=== PATIENT | male | born 1970 | race Caucasian/White ===

== ENCOUNTER 2019-12-12 08:29 | Outpatient (CLI) | payer OTHER, SELFPAY ==
[2019-12-12 08:38] LABS: Add Urine Microscopic? NO; Appearance Urine Clear (Clear); Basophils Absolute Auto 0.09 K/mm3 (0.00-0.10); Bilirubin Urine Negative (Negative); Blood Urine Negative (Negative); Color Urine Yellow (Yellow); Eosinophils Percent Auto 2.1 % (1.0-6.0); Glucose Urine UA Negative (Negative); Hematocrit 44.4 % (40.0-54.0); Hemoglobin 14.9 g/dL (14.0-18.0); Immature Granulocyte Absolute 0.03 K/mm3 (0.00-0.00); Immature Granulocyte Percent A 0.3 % (0.0-0.0); Ketones Urine Negative (Negative); Leukocyte Esterase Ur Negative LEU/UL (Negative); Lymphocytes Absolute Auto 4.76 K/mm3 (1.10-4.50); Lymphocytes Percent Auto 50.9 % (18.0-42.0); Mean Corpuscular HGB Conc 33.6 g/dL (32.0-36.0); Mean Corpuscular Hemoglobin 30.5 pg (27.0-31.0); Mean Platelet Volume 10.3 fl (8.7-11.0); Monocytes Absolute Auto 0.54 K/mm3 (0.10-0.90); Monocytes Percent Auto 5.8 % (2.0-11.0); Neutrophils Absolute Auto 3.7 K/mm3 (1.7-7.2); Neutrophils Percent Auto 39.9 % (50.0-70.0); Nitrate Urine Negative (Negative); Platelet Count Result 193 K/mm3 (150-420); Protein Urine Negative (Negative); Red Blood Count 4.88 M/mm3 (4.70-6.10); Red Cell Distribution Width 12.7 % (11.6-14.4); Specific Grav Ur 1.025 (1.010-1.020); Urobilinogen Urine 0.2 mg/dL (0.2-1.0); White Blood Count 9.4 K/mm3 (4.8-10.8)
[2019-12-12 08:47] LABS: Hemoglobin A1C 8.1 % (<5.7)
[2019-12-12 10:02] LABS: Alanine Aminotransferase 37 U/L (16-63); Albumin Level 3.8 g/dL (3.4-5.0); Alkaline Phosphatase 97 U/L (46-116); Anion Gap 12 mmol/L (8-16); Aspartate Amino Transferase 15 U/L (15-37); Bilirubin,Total 0.5 mg/dL (0.00-1.00); Blood Urea Nitrogen 20 mg/dL (7-18); Calcium 8.8 mg/dL (8.5-10.1); Carbon Dioxide 23 mmol/L (21-32); Chloride 104 mmol/L (98-108); Cholesterol 268 mg/dL (0-200); Estimated Glomerular Filt Rate > 60; Glucose 178 mg/dL (70-99); HDL Direct 61 mg/dL (40-60); LDL Cholesterol Calculated 195 mg/dL (<130); Osmolality Calculated 294 mOsm/kg (285-295); Potassium 4.3 mmol/L (3.5-5.1); Sodium 139 mmol/L (136-145); Total Protein 6.6 g/dL (6.4-8.2); Triglycerides 59 mg/dL (0-150)
== END 2019-12-12 08:30 | disposition home or self-care (01) ==
LOC: CHSLAB 08:30
PROVIDERS: PCP Internal Medicine; Visit Provider Internal Medicine
DX: E78.5 Hyperlipidemia, unspecified (principal); E11.65 Type 2 diabetes mellitus with hyperglycemia
CPT/HCPCS: 36415; 80053; 80061; 81003; 83036; 85025

== ENCOUNTER 2021-11-23 08:48 | Outpatient (CLI) | payer OTHER, SELFPAY ==
--- NOTE | ~2021-11-23 | NM_ITS ---
EXAMINATION: NM marek stress w perfusion DATE: 11/23/2021 11:53 INDICATION: Chest pain. TECHNIQUE: Rest images were obtained following intravenous administration of 9.0 mCi Tc99m tetrofosmi n (Myoview). The patient was infused intravenously with Lexiscan (regadenoson). Then, 27.0 mCi Tc99m tetrofosmin (Myoview) was administered intravenously, and stress images were obtained. Data was recon structed into short axis and horizontal and vertical long axis SPECT images. Gated SPECT images were also obtained. COMPARISON: None. FINDINGS: There is a small, mild, fixed perfusion defect involving left ventricular apex, consistent with infarct. No reversible component to suggest ischemia. There is no segmental wall motion abnorma lity. Left ventricular ejection fraction measures >70%. IMPRESSION: 1. 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 2. Normal left ventricular ejection fraction measuring >70%. Reviewed, dictated and finalized at location A.
--- NOTE | 2021-11-23 09:10 | EST_ITS ---
Patient Info Name: Kvng Allen Age: 51 years : 1970 Gender: Male Ht: 73 in Wt: 155 lbs BSA: 1.89 m2 Exam Date: 11/23/2021 9:44 AM Exam Location: [facility] Stress Patient Status: Outpatient Admit Date: 11/23/2021 Staff Ordering Physician: Vinh Gaspar DO Attending Provider: Vinh Gaspar DO Exercise Technologist: Melissa Milner RDCS Exercise Physician: Vinh Gaspar DO Exam Type: CA stress marek w NM Study Info Indications Z01.818 - Encounter for other preprocedural examination R07.9 - Chest pain, unspecified A regadenoson stress test was performed. Summary 1. 1. Negative Lexiscan stress test for ischemic ST changes by ECG criteria. 2. 2. Baseline hypertension. 3. 3. Nuclear scan to follow and will be reported separately. Please correlate with it. 4. 4. Patient informed of the above results. Protocol: Lexiscan Stress ECG Details Stage: REST Duration (min): 0 min : 52 sec HR (bpm): 64 SBP (mmHg): 140 DBP (mmHg): 96 Stage: REST Duration (min): 14 min : 27 sec HR (bpm): 58 SBP (mmHg): 140 DBP (mmHg): 96 Stage: STAGE 1 Duration (min): 0 min : 59 sec HR (bpm): 79 SBP (mmHg): 137 DBP (mmHg): 86 Stage: RECOVERY Duration (min): 1 min : 0 sec HR (bpm): 86 SBP (mmHg): 146 DBP (mmHg): 84 Stage: RECOVERY Duration (min): 2 min : 0 sec HR (bpm): 78 SBP (mmHg): 146 DBP (mmHg): 84 Stage: RECOVERY Duration (min): 3 min : 0 sec HR (bpm): 77 SBP (mmHg): 144 DBP (mmHg): 82 Stage: RECOVERY Duration (min): 3 min : 5 sec HR (bpm): 74 SBP (mmHg): 144 DBP (mmHg): 82 Rest HR: 58 bpm Peak HR: 87 bpm Rest Sys BP: 140 mmHg Peak Sys BP: 146 mmHg Max Pred HR: 171 bpm % Max Pred HR: 51 % Target HR: 145 bpm Max RPP: 12,702 bpm*mmHg Termination Reason: Completed protocol Cardiac Symptoms: Shortness of breath Total Time: 1 min : 0 sec Rest Jimenez BP: 96 mmHg Peak Jimenez BP: 84 mmHg Total Dose: 0.4 mg Resting ECG Sinus bradycardia. Stress ECG No ST changes. Arrhythmias None. Report Signatures
== END 2021-11-23 08:49 | disposition home or self-care (01) ==
PROVIDERS: PCP Internal Medicine; Visit Provider Internal Medicine Cardiovascular Disease
DX: R07.9 Chest pain, unspecified (principal); Z01.818 Encounter for other preprocedural examination
CPT/HCPCS: 78452; 93017; A9502

== ENCOUNTER 2021-12-27 02:05 | Day surgery (SDC) | payer OTHER, SELFPAY ==
[2021-12-22 14:32] VITALS: BMI 20.4
--- NOTE | 2021-12-22 14:39 | PC.NURSE ---
Report to the Outpatient Waiting Room, entrance under the green pavilion located off [facility], at time 1030 on date 12/27/21. Planned Procedure Time: 1230. Time changes happen often and if your time is changed the preop area will call you the afternoon before. - You and your visitor will be asked to self-screen and do not enter if you have any COVID symptoms. - We encourage only one visitor and NO visitors under age 16 are allowed at this time. Your visitor will receive communication by the phone number that is given day of service. - The patient visitor is requested to social distance or may leave the building when not with patient due to restrictions. - A mask is OPTIONAL within the hospital. Patients may have clear liquids (water, carbonated beverages, clear teas, apple juice) until 3 hours prior to surgery with a maximum of 20 ounces. - No food from midnight until time of surgery Take the following medications with a SIP of water the morning of surgery: 1/2 AM INSULIN DOSE Medications to discontinue per physician: N/A Date to take last dose: N/A Please no make-up, nail nicaraguan, hairspray, perfume, deodorant, or body powder the day of surgery. No jewelry (including any body piercings) or valuables the day of surgery, leave them at home. Please take a shower or bath the night before, or the morning of, surgery with an antibacterial soap (HIBICLENS). Wear comfortable, loose fitting clothing. - Jewelry must be removed prior to entering the operating room. Rings and piercings that are not removed may be cut off. - The hospital will not accept responsibility for valuables. - Please leave all valuables, including medications, at home the day of surgery. If you are going home after surgery, a licensed dinkey driver must drive you home. - NO public transportation without another adult. - We recommend that an adult stay with you for 24 hours following discharge. - We also recommend that you do not drive, make important decision, drink alcoholic beverages, or take any drugs that were not prescribed by your health care provider for at least 24 hours after your discharge time. Follow any additional instructions given to you from your surgeon. If you or anyone in your household have experienced Covid symptoms in the past week, please notify your surgeon or the nurse liaison at the phone number below for possible testing. Telephone instructions given to PT - KELLY KINGSLEY and asked if any additional questions and then verbalized understanding. Patient advised to call surgeon office or pre surgery nurse liaison [phone] if any additional questions.
[2021-12-27] VITALS (10 sets, daily range): BP systolic 107–153; BP diastolic 62–86; PULSE 46–66; RESP 12–18; TEMP 36.6–36.8; O2SAT 100
--- NOTE | 2021-12-27 08:37 | PM.IMHP ---
H&P: HPI History of Present Illness Date/Time: 12/27/21 08:37 Chief Complaint: left inguinal hernia Narrative: Mr. De La Fuente presents today at the request of Dr. Lomeli for evaluation.? Patient reports first noticing a bulge in his left groin almost 6 years ago, which had been small and asymptomatic.? Over the past 6 months, he has noticed increase in size of the bulge and has developed persistent associated discomfort.? Still able to reduce the bulge.? Has recently had more episodes of constipation. He is currently under the care of Dr. Gaspar for bradycardia. Review of Systems Review of Systems: All systems reviewed & are unremarkable except as noted in HPI and below PMFSH Past Medical History Medical History Diabetes High cholesterol Hypertension Family History Family History Other Diabetes mellitus Heart disease Social History Social History Smoking packs per day: 1 Smoking cigarettes per day: 20.0 Years smoked: 20 Smoking pack-years: 20.00 Smoking status: Current every day smoker Tobacco type: cigarettes Alcohol intake: never Alcohol use details: Rarely Substance use: never Substance use type: does not use Living arrangements: with family Spiritual care concerns: No Meds Home Medications and Allergies Home Medications Medication Instructions Recorded Confirmed Type atorvastatin 20 mg tablet 20 mg PO DAILY 10/11/21 12/22/21 History insulin admin supplies (InPen (for 10/11/21 12/02/21 History Humalog) Blue subcutaneous) lisinopril 2.5 mg tablet 2.5 mg PO DAILY 10/11/21 12/22/21 History insulin glargine 100 unit/mL (3 35 unit subcut HS 12/22/21 12/22/21 History mL) subcutaneous pen (Lantus Solostar U-100 Insulin) insulin lispro 100 unit/mL 5 - 10 sliding scale dose subcut 12/22/21 12/22/21 History subcutaneous pen (Humalog KwikPen TID (U-100) Insulin) Allergies Allergy/AdvReac Type Severity Reaction Status Date / Time morphine AdvReac Other Verified 12/22/21 14:45 Exam Const: General: cooperative, comfortable and no acute distress Resp: Auscultation: clear to auscultation bilaterally Cardio: Rate: regular rate Rhythm: regular rhythm GI: Inspection: normal to inspection and non-distended GI Palp: Yes abdominal tenderness, Yes Soft to palpation, Yes Tenderness to palpation present (GI), No Guarding due to palpation present (GI), No Rigid due to palpation and Yes Hernia present Other: LIH - reducible Assessment and Plan Assessment and plan (1) Inguinal hernia without obstruction or gangrene: Code(s): K40.90 - Unilateral inguinal hernia, without obstruction or gangrene, not specified as recurrent Status: Acute Assessment and Plan: will setup for robotic assisted repair c mesh (2) Preop cardiovascular exam: Code(s): Z01.810 - Encounter for preprocedural cardiovascular examination Status: Acute Assessment and Plan: cardiac clearance obtained (3) Diabetes: Code(s): E11.9 - Type 2 diabetes mellitus without complications Status: Acute Assessment and Plan: stable, medically cleared (4) Tobacco abuse: Code(s): Z72.0 - Tobacco use Status: Acute Assessment and Plan: consueled cessation
--- NOTE | 2021-12-27 10:53 | WPDANESEPPF ---
Anes - Initial Pre Proc Eval Procedure: Operation Date: 12/27/21 12:30 Proposed Procedures p Robotic Assisted Left Inguinal Hernia Repair with Mesh - Rosemarie Kimball MD Date/Time: 12/27/21 10:53 Surgeon: Rosemarie Kimball MD Pre Op Diagnosis: left inguinal hernia Patient Data Age: 51 Gender: M Height: 1.85 m Weight: 70.31 kg Allergies Allergy/AdvReac Type Severity Reaction Status Date / Time morphine AdvReac Other Verified 12/22/21 14:45 Home Medications Medication Instructions Recorded Confirmed Type atorvastatin 20 mg tablet 20 mg PO DAILY 10/11/21 12/22/21 History insulin admin supplies (InPen (for 10/11/21 12/02/21 History Humalog) Blue subcutaneous) lisinopril 2.5 mg tablet 2.5 mg PO DAILY 10/11/21 12/22/21 History insulin glargine 100 unit/mL (3 35 unit subcut HS 12/22/21 12/22/21 History mL) subcutaneous pen (Lantus Solostar U-100 Insulin) insulin lispro 100 unit/mL 5 - 10 sliding scale dose subcut 12/22/21 12/22/21 History subcutaneous pen (Humalog KwikPen TID (U-100) Insulin) Patient hx anesthesia problems: post op nausea/vomiting Family hx anesthesia problems: none Results Review: All pre-operative results and documents have been reviewed as part of the pre-operative evaluation. [facility] Past Medical History Medical History Diabetes High cholesterol Hypertension Family History Family History Other Diabetes mellitus Heart disease Social History Social History Smoking packs per day: 1 Smoking cigarettes per day: 20.0 Years smoked: 20 Smoking pack-years: 20.00 Smoking status: Current every day smoker Tobacco type: cigarettes Alcohol intake: never Alcohol use details: Rarely Substance use: never Substance use type: does not use Living arrangements: with family Spiritual care concerns: No Anes - Eval Final PreProcedure Day of Procedure 12/27/21 10:53 Patient weight: normal Heart: regular rate and rhythm Lungs: decreased breath sounds Airway: Mallampati scale class II Neurological: alert and oriented Last oral intake: >/= 8 hours ASA classification: III Emergent: no Anesthetic plan: proceed Anesthesia type and monitoring: general ETT and standard monitoring Results Review: All pre-operative results and documents have been reviewed as part of the pre-operative evaluation. Informed Consent: The patient's anesthetic plan and its attendant risks and benefits were discussed with the patient/family/POA. Questions were solicited and answers provided to the satisfaction of the patient/family/POA.
[2021-12-27] MEDS: LACTATED RINGERS 1,000 ML 30 ML IV CONT ×3 (11:00→15:03)
[2021-12-27] MEDS: KETOROLAC 15 MG/ML VIAL (*BKC) IV PUSH (11:00)
[2021-12-27] MEDS: ACETAMINOPHEN 500 MG TABLET 1000 MG PO (11:00)
[2021-12-27] MEDS: SCOPOLAMINE 1.5 MG PATCH TRANSDERM (11:07)
[2021-12-27 11:15] LABS: Anion Gap 13 mmol/L (8-16); Blood Urea Nitrogen 15 mg/dL (9-20); Calcium 9.1 mg/dL (8.4-10.2); Carbon Dioxide 26 mmol/L (22-30); Chloride 100 mmol/L (98-107); Estimated CRCL calculation 119 ml/min; Estimated Glomerular Filt Rate > 60; Glucose 258 mg/dL (65-110); Sodium 139 mmol/L (137-145)
[2021-12-27] MEDS: INSULIN HUMAN REGULAR (*BKC) 100 UNITS/ML 6 UNITS SUB-Q (11:41)
--- NOTE | 2021-12-27 12:00 | WPDHPUPDATE1 ---
History and Physical Update Update Date/Time: 12/27/21 12:00 History and Physical has been reviewed, including an updated exam of the patient. There are NO changes in the patient's condition. Risks, benefits, and alternatives have been discussed and questions answered. Patient agrees to proceed with procedure.
[2021-12-27] MEDS: ceFAZolin 2 GM/D5W 50 ML 2 GM/50 ML BAG IVPB (12:48)
[2021-12-27] MEDS: BUPIVACAINE/EPINEPHRINE 0.25% 50 ML VIAL 30 ML INFILTRATE (13:24)
--- NOTE | 2021-12-27 14:14 | W.PM.PROC2 ---
Procedure Note - Detailed Date of Procedure 12/27/21 Pre-op Diagnosis left inguinal hernia Post-op Diagnosis Same Procedure Performed robotic assisted left inguinal hernia repair with mesh Surgeon Rosemarie Kimball MD Anesthesia General Indications 51 y/o M c LIH and worsening groin pain over last few months Findings indirect left inguinal hernia Description of Procedure Patient was brought into the operating room and placed in the supine position. After adequate induction of general anesthesia, the patient was prepped and draped in normal sterile fashion. A time-out was then done to verify the patient's identity, as well as the procedure being performed. I began by making a 8 mm incision in the supraumbilical region, a Veress needle was then placed into the peritoneal cavity. CO2 gas was then insufflated and after adequate pneumoperitoneum was achieved, the Veress needle was removed. I then placed an 8 mm trocar through this incision. I then placed the endoscope through this trocar site and under direct visualization placed 2 further 8 mm ports in the right and left mid abdomen. The [employer] robot was then docked to the 3 trocar sites. I then scrubbed out and went to the robotic console. Upon examining the pelvis, it was noted that the patient had a moderate left inguinal hernia. The right side was examined and no hernia defect was noted. I began by making a preperitoneal flap approximately 6 cm superior to the defect. This flap was carried medially past the umbilical ligaments and laterally to the transversalis. It then began dissection of my medial compartment taking this down to the pubic tubercle. I then began the lateral dissection taking this down to the transversalis fascia. Once these compartments were achieved, I began dissection around the cord structures. A moderate sized indirect hernia was noted at this point. Using careful dissection, was able to reduce indirect hernia sac off the cord structures. Once this was adequately done, I went ahead and placed a large piece of 3D Max mesh into the abdominal cavity. The mesh was carefully positioned, centering the center of the mesh over the indirect defect. Once this was done, was very satisfied with our repair. Using 3-0 Vicryl sutures, I tacked the mesh medially to Kirit's ligament. Two lateral sutures were placed from the mesh to the transversalis fascia. I then closed the peritoneal flap with a running 2.0 V Lock suture. The abdomen was then desufflated, and all ports were removed. All incisions were then closed with the 4.0 monocryl suture. Dermabond was placed on each wound. The patient tolerated the procedure well, was extubated in the operating room postoperatively, and will now be transferred to the recovery room in stable condition. Implants large 3DMax mesh Estimated Blood Loss 10 Drains No Packing No Pathology None sent Complications No immediate complications Condition Stable Disposition PACU [facility] Billing Surgery - Charge Forward: Surgery Billing
[2021-12-27 14:37] LABS: Glucose Point of Care 225 mg/dl (65-105)
--- NOTE | 2021-12-27 15:05 | SUR.PHASEI ---
1505-POC GLUCOSE DISCUSSED W/DR. ALEXANDER, NO TX AT THIS TIME.
== END 2021-12-27 16:50 | disposition home or self-care (01) ==
PROVIDERS: Anesthesiology; PCP Internal Medicine; Visit Provider Surgery
PROC: 8E0Y4CZ Robotic Assisted Procedure of Lower Extremity, Percutaneous Endoscopic Approach (ICD-10-PCS; CPT 49650; principal; 2021-12-27 12:30)
DX: K40.90 Unilateral inguinal hernia, without obstruction or gangrene, not specified as recurrent (principal); E11.9 Type 2 diabetes mellitus without complications; E78.00 Pure hypercholesterolemia, unspecified; I10 Essential (primary) hypertension; Z79.4 Long term (current) use of insulin; F17.210 Nicotine dependence, cigarettes, uncomplicated
CPT/HCPCS: 49650; S2900; 36415; 80048; 82948; 86850; 86900; 86901; A9270; C1781; J0690; J1100; J1170; J1815; J1885; J2250; J2405; J2704; J2710; J3010; J7030; J7120

== ENCOUNTER 2022-01-03 11:55 | Emergency (ER) | payer OTHER, SELFPAY ==
[2022-01-03 12:52] VITALS: BP 135/85; PULSE 51; RESP 24; TEMP 36.8; O2SAT 100
--- NOTE | 2022-01-03 15:02 | PC.NURSE ---
PT SEEN LEAVING ED W/ . SERVICE RIG OPERATOR ATTEMPTED TO DRAW BLOOD ON PT WHO BEGAN CUSSING ABOUT HOW SICK HE WAS AND HOW HE NEEDED TO GET OUT OF THIS PLACE.
== END 2022-01-03 15:02 | disposition left against medical advice (07) ==
LOC: ANHED 15:19
PROVIDERS: PCP Internal Medicine
DX: K59.00 Constipation, unspecified (principal)
CPT/HCPCS: 99199

== ENCOUNTER 2022-01-03 15:30 | Emergency (ER) | payer OTHER, SELFPAY ==
--- NOTE | ~2022-01-03 | CT_ITS ---
EXAMINATION: CT abdomen pelvis w con DATE: 01/03/2022 17:44 INDICATION: post op abdominal pain TECHNIQUE: Computed tomography (CT) of the abdomen and pelvis was performed with 100 mL Omnipaque-350 intravenous contrast. Automated exposure control and iterative reconstruction technique were employe d. The dose-length product was 244.66 mGy-cm. COMPARISON: None. FINDINGS: Lower thorax: Unremarkable Liver: Simple right lobe cyst near the tip of the liver. Multiple additional hypodensities that are t oo small to characterize but also likely represent cysts. Biliary/Gallbladder: Gallbladder is normal. No bile duct dilation. Pancreas: No mass or duct dilation. Spleen: Normal. Adrenals:No mass. Kidneys: Simple right midpole cyst. No suspicious mass. No hydronephrosis or obstructing calcificatio n. Insert before no small mild distal esophageal and gastric wall edema as can be seen with esophagit is/gastritis. GI tract: No small or large bowel dilation. Appendix not visualized Mesentery/Peritoneum: No ascites, mass, or free air. Retroperitoneum: No mass. Atherosclerotic abdominal aortic and/or arterial calcifications. Pelvis: The bladder is distended with intermediate density fluid. Prostatomegaly. Soft Tissues: Subcutaneous gas and soft tissue irregularity, stranding in the left inguinal canal. Mi nimal subcutaneous gas in the right inguinal canal Bones: No acute osseous finding. IMPRESSION: Bilateral inguinal postsurgical change with comparatively increased gas and inflammatory stranding in the left inguinal canal. Distended urinary bladder, with nonsimple fluid content that may represent hemorrhage, crystalline, or proteinaceous debris. Reviewed, dictated and finalized at location K. TRANSIT OPERATOR IMPRESSION: Bilateral inguinal postsurgical change with comparatively increased gas and inf lammatory stranding in the left inguinal canal. Distended urinary bladder, with nonsimple fluid content that may represent hemorrhage, crystalline, or protein aceous debris.
--- NOTE | 2022-01-03 15:40 | ED.ABDPAIN ---
HPI - Abdominal Pain General Chief Complaint: Abdominal Pain Stated Complaint: severe abdominal pain Time Seen by Provider: 01/03/22 15:37 Source: patient Mode of arrival: ambulatory History of Present Illness HPI narrative: 51-year-old male with a history of hypertension, dyslipidemia, diabetes mellitus had left inguinal hernia repair robotically on 12/27/2021. Postprocedure he had transient abdominal pain which resolved. Subsequently he developed left flank abdominal pain. He is constipated but had a small bowel movement today. He presents to the ER with -- abdominal pain -- decreased oral intake -- nausea without any vomiting or diarrhea. -- No fever but diaphoretic. -- Patient quit taking his 40 units of Lantus and sliding scale. He presents with a blood sugar of 266. MD elicited complaint: abdominal pain Onset (ago): day(s) ( Worsening abdominal pain for the past 3 days.) Pain Consistency: intermittent Location: L flank Severity: severe Quality: cramping and sharp Migration to: no migration Exacerbating factors: movement Relieving factors: nothing Associated symptoms: nausea Related Data Home Medications Medication Instructions Recorded Confirmed atorvastatin 20 mg tablet 20 mg PO DAILY 10/11/21 01/03/22 insulin admin supplies (InPen (for 10/11/21 01/03/22 Humalog) Blue subcutaneous) lisinopril 2.5 mg tablet 2.5 mg PO DAILY 10/11/21 01/03/22 insulin glargine 100 unit/mL (3 35 unit subcut HS 12/22/21 01/03/22 mL) subcutaneous pen (Lantus Solostar U-100 Insulin) insulin lispro 100 unit/mL 5 - 10 sliding scale dose subcut 12/22/21 01/03/22 subcutaneous pen (Humalog KwikPen TID (U-100) Insulin) Allergies Allergy/AdvReac Type Severity Reaction Status Date / Time morphine AdvReac Other Verified 01/03/22 15:46 Review of Systems Review of Systems: All systems reviewed & are unremarkable except as noted in HPI and below Constitutional: Constitutional: Reports as per HPI, Reports no additional constitutional complaints and Reports weakness Eyes: Eyes: Reports as per HPI and Reports no additional eye complaints ENT: Reports system reviewed and no additional complaints, except as documented and Reports as per HPI Cardiovascular: Cardiovascular: Reports as per HPI and Reports no additional cardiovascular complaints Respiratory: Respiratory: Reports as per HPI and Reports no additional respiratory complaints Gastrointestinal: Gastrointestinal: Reports as per HPI, Reports no additional gastrointestinal complaints, Reports abdominal pain and Reports nausea Genitourinary: Genitourinary: Reports no additional male genitourinary complaints and Reports as per HPI Musculoskeletal: Musculoskeletal: Reports no additional musculoskeletal complaints and Reports as per HPI Integumentary/Breasts: Skin/Breast: Reports system reviewed and no additional complaints, except as docu and Reports as per HPI Neurologic: Reports system reviewed and no additional complaints, except as documented and Reports as per HPI Psychiatric: Psychiatric: Reports no additional psychiatric complaints and Reports as per HPI Endocrine: Endocrine: Reports no additional endocrine complaints and Reports as per HPI Hematologic/Lymphatic: Hematologic/Lymphatic: Reports no additional hematologic/lymphatic complaints and Reports as per HPI Allergic/Immunologic: Allergic/Immunologic: Reports no additional allergic/immunologic complaints and Reports as per HPI PMFSH Past Medical History Medical History Diabetes High cholesterol Hypertension Family History Family History Other Diabetes mellitus Heart disease Social History Social History Smoking packs per day: 1 Smoking cigarettes per day: 20.0 Years smoked: 20 Smoking pack-years: 20.00 Smoking status: Cu
[2022-01-03 15:43] VITALS: BP 136/80; PULSE 63; RESP 16; TEMP 36.6; O2SAT 100
[2022-01-03 15:44] LABS: Glucose Point of Care 267 mg/dl (65-105)
[2022-01-03] MEDS: ONDANSETRON INJ 4 MG/2 ML VIAL IV PUSH ×2 (16:21→19:54)
[2022-01-03] MEDS: LACTATED RINGERS 1,000 ML 999 ML IV CONT ×2 (16:22→17:18)
[2022-01-03] MEDS: fentaNYL CITRATE INJ (*CRX) 100 MCG/2 ML VIAL 50 MCG IV PUSH ×2 (16:26→19:52)
[2022-01-03 16:36] LABS: Basophils Absolute Auto 0.07 K/mm3 (0.00-0.10); Basophils Percent Auto 0.8 % (0.0-1.0); Eosinophils Absolute Auto 0.04 K/mm3 (0.02-0.50); Eosinophils Percent Auto 0.5 % (1.0-6.0); Hemoglobin 15.3 g/dL (14.0-18.0); Immature Granulocyte Absolute 0.05 K/mm3 (0.00-0.00); Immature Granulocyte Percent A 0.6 % (0.0-0.0); Lymphocytes Absolute Auto 2.85 K/mm3 (1.10-4.50); Lymphocytes Percent Auto 33.1 % (18.0-42.0); Mean Corpuscular HGB Conc 34.8 g/dL (32.0-36.0); Mean Corpuscular Hemoglobin 30.7 pg (27.0-31.0); Mean Corpuscular Volume 88.4 fL (78.0-102.0); Mean Platelet Volume 9.9 fl (8.7-11.0); Monocytes Absolute Auto 0.39 K/mm3 (0.10-0.90); Monocytes Percent Auto 4.5 % (2.0-11.0); Neutrophils Absolute Auto 5.2 K/mm3 (1.7-7.2); Neutrophils Percent Auto 60.5 % (50.0-70.0); Platelet Count Result 240 K/mm3 (150-420); Red Blood Count 4.98 M/mm3 (4.70-6.10); Red Cell Distribution Width 12.4 % (11.6-14.4); White Blood Count 8.6 K/mm3 (4.8-10.8)
[2022-01-03 16:50] LABS: Lipase 58 U/L (73-393); Magnesium 1.7 mg/dL (1.8-2.4)
[2022-01-03 16:52] LABS: Partial Thromboplastin Time 29.9 SEC (23.90-30.70); Prothrombin Time 10.9 Seconds (9.50-12.10)
[2022-01-03 16:52] LABS: Alanine Aminotransferase 26 U/L (16-63); Albumin Level 3.9 g/dL (3.4-5.0); Alkaline Phosphatase 93 U/L (46-116); Anion Gap 9 mmol/L (8-16); Aspartate Amino Transferase 12 U/L (15-37); Bilirubin,Total 0.6 mg/dL (0.00-1.00); Blood Urea Nitrogen 23 mg/dL (7-18); Calcium 9.7 mg/dL (8.5-10.1); Carbon Dioxide 24 mmol/L (21-32); Chloride 98 mmol/L (98-108); Estimated Glomerular Filt Rate > 60; Glucose 305 mg/dL (70-99); Osmolality Calculated 286 mOsm/kg (285-295); Potassium 4.2 mmol/L (3.5-5.1); Sodium 131 mmol/L (136-145)
[2022-01-03 16:57] LABS: Lactic Acid Reflex 2.5 mmol/L (0.4-2.0)
[2022-01-03] MEDS: MAGNESIUM SULF 2 GM/WATER 50ML 2 GM/50 ML BAG IVPB (17:19)
[2022-01-03] MEDS: INSULIN HUMAN REGULAR (*BKC) 100 UNITS/ML 10 UNITS SUB-Q (17:52)
[2022-01-03 17:53] LABS: Glucose Point of Care 259 mg/dl (65-105)
--- NOTE | 2022-01-03 17:53 | PC.NURSE ---
patient taken to ct prior to giving insulin. administration time changed. glucose checked prior to giving. 259 at this time. erp notified to verify 10 unites subq to still be given. erp verifies to give 10 units at this time.
--- NOTE | 2022-01-03 18:53 | PC.NURSE ---
exchange called to abdiel palacios dr covering for patient's surgeon to discus findings of ct scan
[2022-01-03 19:00] VITALS: BP 126/78; PULSE 62; RESP 20; O2SAT 98
--- NOTE | 2022-01-03 19:15 | PC.NURSE ---
Care resumed, pt sitting bedside and Urine obtained for UA. Pt states he is feeling so much better, VSS. Pt given ice water at this time.
[2022-01-03 19:16] LABS: Add Urine Microscopic? YES; Appearance Urine Clear (Clear); Bilirubin Urine Negative (Negative); Blood Urine Negative (Negative); Color Urine Yellow (Yellow); Glucose Urine UA 3+ (Negative); Ketones Urine 3+ (Negative); Leukocyte Esterase Ur Negative (Negative); Nitrate Urine Negative (Negative); Protein Urine Negative (Negative); Urobilinogen Urine 0.2 mg/dL (0.2-1.0)
[2022-01-03 19:26] LABS: Bacteria Urine None seen /hpf; Mucus Urine Rare /lpf; RBC Urine 0-2 /hpf (0-2); Squamous Epithelial Cell Urine None seen /hpf (Few); WBC Urine 0-3 /hpf (0-3)
[2022-01-03 19:34] LABS: Reflex Lactic Acid Yes or No Add Lactic
[2022-01-03 20:01] LABS: Lactic Acid 1.7 mmol/L (0.4-2.0)
[2022-01-03 20:25] VITALS: BP 122/68; PULSE 56; RESP 20; TEMP 36.4; O2SAT 97
--- NOTE | 2022-01-10 14:15 | PC.NURSE ---
BLOOD CULTURES X2 FINAL RESULTS: NO GROWTH AFTER 5 DAYS. NO ACTION NEEDED
== END 2022-01-03 20:30 | disposition home or self-care (01) ==
PROVIDERS: Emergency Provider Internal Medicine Critical Care Medicine; PCP Internal Medicine
DX: R10.9 Unspecified abdominal pain (principal); Z98.890 Other specified postprocedural states; R33.9 Retention of urine, unspecified; E11.65 Type 2 diabetes mellitus with hyperglycemia; Z79.4 Long term (current) use of insulin; F17.200 Nicotine dependence, unspecified, uncomplicated
CPT/HCPCS: 36415; 74177; 80053; 81001; 82948; 83605; 83690; 83735; 85025; 85610; 85730; 87040; 96361; 96365; 96375; 96376; 99284; J1815; J2405; J3010; J3475; J7120; Q9967

== ENCOUNTER 2022-01-10 10:17 | Emergency (ER) | payer OTHER, SELFPAY ==
--- NOTE | ~2022-01-10 | CT_ITS ---
EXAMINATION: CT abdomen pelvis w con DATE: 01/10/2022 12:17 INDICATION: Abdominal pain TECHNIQUE: Computed tomography (CT) of the abdomen and pelvis was performed with 100 CC Omnipaque 350 intravenous contrast. Automated exposure control and iterative reconstruction technique were employe d. Exam dose: 213.79 mGy-cm total exam DLP. COMPARISON: 01/03/2022 CT abdomen pelvis FINDINGS: Mild emphysematous changes of the lungs. The lung bases are clear of infiltrate or consolid ation. Normal heart size. No pericardial or pleural effusion. There are scattered hypoattenuating lesions of the liver measuring up to approximately 12.7 mm, likel y hepatic cysts. The gallbladder is present. No bile duct or pancreatic duct dilatation. No pancreati c mass lesion or calcification is detected. Normal splenic size. Normal morphology of the adrenal glands. Approximately 12 mm upper pole right renal cyst and probable 4 mm mid right renal cyst. The kidneys a re otherwise unremarkable. No urinary tract calculus or hydroureteronephrosis is evident. Prostate enlargement and calcifications. The urinary bladder is unremarkable. Normal caliber of the abdominal aorta. No intraperitoneal or retroperitoneal or pelvic mass lesion or adenopathy or ascites. There is moderately prominent hematoma colon. No bowel obstruction or intraperitoneal free air is det ected. Diminished air in the left inguinal soft tissues and resolution of right inguinal area since 2. Moderate degenerative disc disease and mild retrolisthesis at L3-4. Severe degenerative disc disease at L5-S1. No suspicious osteolytic or osteoblastic lesions. IMPRESSION: Diminished air in the left inguinal region and resolution of right inguinal air since Emphysema Scattered hepatic probable cysts Right renal cysts Prostate enlargement and calcification Reviewed, dictated and finalized at [facility]. Reviewed, dictated and finalized at [facility]. 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
[2022-01-10 10:25] VITALS: BP 121/78; PULSE 50; RESP 16; TEMP 36.1; O2SAT 99
[2022-01-10 10:30] VITALS: BP 121/78; PULSE 50; RESP 16; TEMP 36.1; O2SAT 99
--- NOTE | 2022-01-10 10:47 | ECG_ITS ---
Measurements Intervals [place] Rate: 58 P: 75 WI: 172 QRS: 97 QRSD: 90 T: 77 QT: 420 QTc: 415 Interpretive Statements SINUS BRADYCARDIA RIGHT AXIS DEVIATION RIGHT ATRIAL ENLARGEMENT DELAYED PRECORDIAL R/S TRANSITION BASELINE ARTIFACT- I, II, III, AVR, AVL, AVF, V1 BORDERLINE ECG NO PREVIOUS ECG AVAILABLE FOR COMPARISON Electronically Signed On 01-10-2022 11:44:34 PLASTIC FABRICATOR by Vinh Gaspar D.O.
[2022-01-10 11:15] LABS: Basophils Absolute Auto 0.11 K/mm3 (0.00-0.10); Basophils Percent Auto 1.7 % (0.0-1.0); Eosinophils Absolute Auto 0.08 K/mm3 (0.02-0.50); Eosinophils Percent Auto 1.2 % (1.0-6.0); Hematocrit 43.7 % (40.0-54.0); Hemoglobin 14.9 g/dL (14.0-18.0); Immature Granulocyte Absolute 0.04 K/mm3 (0.00-0.00); Immature Granulocyte Percent A 0.6 % (0.0-0.0); Lymphocytes Absolute Auto 2.87 K/mm3 (1.10-4.50); Lymphocytes Percent Auto 43.2 % (18.0-42.0); Mean Corpuscular HGB Conc 34.1 g/dL (32.0-36.0); Mean Corpuscular Hemoglobin 30.8 pg (27.0-31.0); Mean Corpuscular Volume 90.3 fL (78.0-102.0); Mean Platelet Volume 9.8 fl (8.7-11.0); Monocytes Absolute Auto 0.43 K/mm3 (0.10-0.90); Monocytes Percent Auto 6.5 % (2.0-11.0); Neutrophils Absolute Auto 3.1 K/mm3 (1.7-7.2); Neutrophils Percent Auto 46.8 % (50.0-70.0); Platelet Count Result 257 K/mm3 (150-420); Red Blood Count 4.84 M/mm3 (4.70-6.10); Red Cell Distribution Width 12.3 % (11.6-14.4); White Blood Count 6.6 K/mm3 (4.8-10.8)
[2022-01-10] MEDS: SODIUM CHLORIDE 0.9% IV 1,000 ML 999 ML IV CONT ×2 (11:30→12:26)
[2022-01-10 11:31] LABS: Estimated CRCL calculation 81 ml/min; Estimated Glomerular Filt Rate > 60
[2022-01-10] MEDS: ONDANSETRON INJ 4 MG/2 ML VIAL IV PUSH (11:32)
[2022-01-10 11:33] LABS: Partial Thromboplastin Time 30.4 SEC (23.90-30.70); Prothrombin Time 10.7 Seconds (9.50-12.10)
[2022-01-10 11:40] LABS: Influenza A QL RT-PCR Negative (Negative); Influenza B QL RT-PCR Negative (Negative); SARS-CoV-2 RNA PCR Negative (Negative)
[2022-01-10 11:43] LABS: Alkaline Phosphatase 84 U/L (46-116); Aspartate Amino Transferase 11 U/L (15-37); Bilirubin,Total 0.7 mg/dL (0.00-1.00); Carbon Dioxide 22 mmol/L (21-32); Chloride 98 mmol/L (98-108); Potassium 4.3 mmol/L (3.5-5.1); Total Protein 7.5 g/dL (6.4-8.2); Troponin I 5.8 ng/L (0.00-60.4)
[2022-01-10 11:45] LABS: Blood Urea Nitrogen 20 mg/dL (7-18); Glucose 358 mg/dL (70-99)
[2022-01-10 11:46] LABS: Anion Gap 14 mmol/L (8-16); Calcium 9.1 mg/dL (8.5-10.1); Lactic Acid Reflex 1.5 mmol/L (0.4-2.0); Osmolality Calculated 294 mOsm/kg (285-295); Sodium 134 mmol/L (136-145)
[2022-01-10 11:47] LABS: Alanine Aminotransferase 24 U/L (16-63); Albumin Level 3.8 g/dL (3.4-5.0); CRP < 0.5 mg/dL (0.0-0.9); Lipase 71 U/L (73-393)
[2022-01-10 12:30] VITALS: BP 138/84; PULSE 57; RESP 16; TEMP 36.2; O2SAT 99
--- NOTE | 2022-01-10 12:43 | ED.DIZZY ---
HPI - Dizziness General Chief Complaint: Dizziness Stated Complaint: DIZZY HEADACHE VOMITING Time Seen by Provider: 01/10/22 10:31 Source: patient and family Mode of arrival: ambulatory Limitations: no limitations History of Present Illness HPI Narrative: this is a 51-year-old gentleman that presents with dizziness and sense of vertigo with movement has been nauseated, with some queasiness and no fever chills no shortness of breath has a frontal sinus headache and pressure, with some recent abdominal surgery laparoscopic inguinal hernia repair. Otherwise no abdominal pain no diarrhea constipation no chest pain no shortness of breath. MD elicited complaint: dizziness and vertigo Onset (ago): day(s) Timing: gradual onset Severity: moderate Description: sense of movement Context: change in body position Related Data Home Medications Medication Instructions Recorded Confirmed atorvastatin 20 mg tablet 20 mg PO DAILY 10/11/21 01/10/22 insulin admin supplies (InPen (for 10/11/21 01/03/22 Humalog) Blue subcutaneous) insulin glargine 100 unit/mL (3 35 unit subcut HS 12/22/21 01/10/22 mL) subcutaneous pen (Lantus Solostar U-100 Insulin) insulin lispro 100 unit/mL 5 - 10 sliding scale dose subcut 12/22/21 01/10/22 subcutaneous pen (Humalog KwikPen TID (U-100) Insulin) Allergies Allergy/AdvReac Type Severity Reaction Status Date / Time morphine AdvReac Other Verified 01/10/22 11:11 Review of Systems Review of Systems: All systems reviewed & are unremarkable except as noted in HPI and below PMFSH Past Medical History Medical History Diabetes High cholesterol Hypertension Family History Family History Other Diabetes mellitus Heart disease Social History Social History Smoking packs per day: 1 Smoking cigarettes per day: 20.0 Years smoked: 20 Smoking pack-years: 20.00 Smoking status: Current every day smoker Tobacco type: cigarettes Alcohol intake: never Alcohol use details: Rarely Substance use: never Substance use type: does not use Spiritual care concerns: No Exam Const: General: healthy appearing Nutritional Appearance: well nourished Orientation/consciousness: patient oriented x3 Limitations: no limitations HENMT: Head: normal to inspection Ears: TM's normal bilaterally Face/Nose/Sinus: Normal external nose present Face and sinus: sinus tenderness Mouth: Yes Normal oral and palatal mucosa present Eyes: Conjunctivae: conjunctivae normal Pupils: Equal, round and reactive pupils present EOM: EOMs intact bilaterally Neck: Neck: normal visual inspection, no lymphadenopathy and no meningeal signs Chest: Chest palpation & inspection: normal inspection of the chest Resp: Effort & Inspection: normal respiratory effort Auscultation: clear to auscultation bilaterally Cardio: Rate: regular rate Rhythm: regular rhythm GI: Auscultation: normal bowel sounds : General: Yes bladder normal to palpation Back/Spine/Pelvis: Back: no CVA tenderness Skin: General skin exam: normal color Rashes: no rashes Wounds: no wounds Neuro: General: patient oriented x3 Cranial nerves: Yes Nystagmus not present Speech: normal speech Psych: Mental Status: mental status grossly normal Course Course Emergency Course: CT scan reviewed with patient and family which shows no acute findings blood work was unremarkable his vitals are stable patient received IV fluids and a dose of Zofran. Vital Signs Vital signs: Vital Signs Temperature 36.1 C L 01/10/22 10:25 Pulse Rate 50 L 01/10/22 10:25 Respiratory Rate 16 01/10/22 10:25 Blood Pressure 121/78 01/10/22 10:25 Pulse Oximetry 99 01/10/22 10:25 Oxygen Delivery Room Air 01/10/22 10:25 Temperature 36.1 C L 01/10/22 10:30 Pulse Rate
== END 2022-01-10 13:07 | disposition home or self-care (01) ==
PROVIDERS: Emergency Provider Emergency Medicine; PCP Internal Medicine
DX: J01.10 Acute frontal sinusitis, unspecified (principal); Z20.822 Contact with and (suspected) exposure to COVID-19
CPT/HCPCS: 74177; 80053; 83605; 83690; 84484; 85025; 85610; 85730; 86140; 87040; 87502; 93005; 96361; 96374; 99284; J2405; J7030; Q9967; U0003; U0005

== ENCOUNTER 2022-02-06 03:58 | Observation (INO) | payer OTHER, SELFPAY ==
[2022-02-06] VITALS (45 sets, daily range): BP systolic 98–143; BP diastolic 60–104; PULSE 54–183; RESP 11–28; TEMP 36.3–36.8; O2SAT 97–100; BMI 18.7
--- NOTE | ~2022-02-06 | CT_ITS ---
EXAMINATION: CTA chest PE protocol DATE: 02/06/2022 06:32 INDICATION: Chest pain. TECHNIQUE: Computed tomography angiography (CTA) of the chest was performed with 100 mL Omnipaque-350 intravenous contrast timed to evaluate the pulmonary arteries. Coronal maximum intensity projection 3D-reconstructions were created by the technologist. Automated exposure control and iterative reconst ruction technique were employed. The dose-length product was 203.18 mGy-cm. COMPARISON: CT abdomen and pelvis 02/06/2022 FINDINGS: There is mild scarring at the lung apices. There is mild emphysema. There is mild atelectas is bilaterally. Calcified bilateral lung nodules are consistent with old granulomatous disease. No pl eural effusion. The heart size is normal. No pericardial effusion. There is mild thoracic spondylosis . Thoracic dextroscoliosis is noted. IMPRESSION: 1. No pulmonary embolus. Sensitivity is moderately decreased by motion artifact. 2. Mild emphysema. Reviewed, dictated and finalized at [facility]. ILITY SPECIALIST IMPRESSION: 1. No pulmonary embolus. Sensitivity is moderately decreased by motion artifact . 2. Mild emphysema.
--- NOTE | ~2022-02-06 | CT_ITS ---
EXAMINATION: CT abdomen pelvis w con DATE: 02/06/2022 05:27 INDICATION: Abdominal pain. TECHNIQUE: Computed tomography (CT) of the abdomen and pelvis was performed with 100 mL Omnipaque 350 intravenous contrast. Automated exposure control and iterative reconstruction technique were employe d. The dose-length product was 220.12 mGy-cm. COMPARISON: CT abdomen and pelvis 01/10/2022 FINDINGS: The visualized portions of the lung bases demonstrate mild emphysema and minimal atelectasi s. There are small bilateral posterior diaphragmatic hernias containing fat. No pleural effusion. The heart size is normal. No pericardial effusion. There are cysts in the liver measuring up to 1.5 cm. The gallbladder, spleen, pancreas, and adrenal glands are normal. There are cysts in right kidney el suring up to 13 mm. Left kidney is normal. The bladder is distended. The prostate is mildly enlarged. The appendix measures 10 mm in diameter and contains hyperdense material. There are no pathologicall y enlarged lymph nodes. There is no free intraperitoneal fluid. There is total occlusion of right ext ernal iliac artery and right common femoral artery. There is reconstitution of flow in right superfic ial femoral artery. There is total occlusion of left common femoral artery with reconstitution of karen w in superficial femoral artery, which demonstrates moderate stenosis. There is severe lower lumbar s pondylosis. IMPRESSION: 1. Appendiceal diameter of 10 mm with hyperdense material in the appendix, stable from 01/03/2022. No periappendiceal inflammation to suggest appendicitis. 2. Peripheral arterial disease, stable from 01/03/2022. Reviewed, dictated and finalized at [facility]. RESIDENT IMPRESSION: 1. Appendiceal diameter of 10 mm with hyperdense material in the appendix, stab le from 01/03/2022. No periappendiceal inflammation to suggest appendicitis. 2. Peripheral arterial disease, stable from 01/03/2022.
--- NOTE | 2022-02-06 04:01 | ECG_ITS ---
Measurements Intervals [place] Rate: 60 P: 83 [place]: 177 QRS: 105 QRSD: 89 T: 79 QT: 412 QTc: 413 Interpretive Statements SINUS RHYTHM RIGHT ATRIAL ENLARGEMENT [0.3mV P-WAVE] LEFT ATRIAL ENLARGEMENT [-0.15mV P-WAVE IN V1/V2] RIGHT AXIS DEVIATION [QRS AXIS > 100] NONSPECIFIC T-WAVE ABNORMALITY COMPARED TO ECG 01/10/2022 11:02:11, NONSPECIFIC T-WAVE FLATTENING IS NOTED Electronically Signed On 02-06-2022 8:50:08 DOOR MAKER by Guero Patel M.D.
[2022-02-06 04:04] LABS: Glucose Point of Care 368 mg/dl (65-105)
[2022-02-06] MEDS: METOCLOPRAMIDE HCL INJ 10 MG/2 ML VIAL IV PUSH (04:17)
[2022-02-06] MEDS: KETOROLAC 30 MG/ML VIAL (*BKC) IV PUSH (04:18)
[2022-02-06] MEDS: SODIUM CHLORIDE 0.9% IV 1,000 ML 999 ML IV CONT (04:18)
[2022-02-06] MEDS: PANTOPRAZOLE SODIUM IV 40 MG VIAL IV PUSH (04:18)
[2022-02-06] MEDS: SODIUM CHLORIDE 0.9% IV 2,000 ML 999 ML IV CONT (04:19)
[2022-02-06 04:42] LABS: Basophils Absolute Auto 0.07 K/mm3 (0.00-0.10); Basophils Percent Auto 0.6 % (0.0-1.0); Eosinophils Absolute Auto 0.01 K/mm3 (0.02-0.50); Eosinophils Percent Auto 0.1 % (1.0-6.0); Hematocrit 48.7 % (40.0-54.0); Hemoglobin 16.6 g/dL (14.0-18.0); Immature Granulocyte Absolute 0.15 K/mm3 (0.00-0.00); Immature Granulocyte Percent A 1.3 % (0.0-0.0); Lymphocytes Absolute Auto 2.29 K/mm3 (1.10-4.50); Lymphocytes Percent Auto 19.2 % (18.0-42.0); Mean Corpuscular HGB Conc 34.1 g/dL (32.0-36.0); Mean Platelet Volume 10.8 fl (8.7-11.0); Monocytes Absolute Auto 0.43 K/mm3 (0.10-0.90); Monocytes Percent Auto 3.6 % (2.0-11.0); Neutrophils Percent Auto 75.2 % (50.0-70.0); Platelet Count Result 233 K/mm3 (150-420); Red Blood Count 5.35 M/mm3 (4.70-6.10); Red Cell Distribution Width 12.5 % (11.6-14.4); White Blood Count 11.9 K/mm3 (4.8-10.8)
[2022-02-06 04:56] LABS: Alanine Aminotransferase 25 U/L (16-63); Albumin Level 4.2 g/dL (3.4-5.0); Alkaline Phosphatase 90 U/L (46-116); Anion Gap 23 mmol/L (8-16); Aspartate Amino Transferase 15 U/L (15-37); Bilirubin,Total 0.7 mg/dL (0.00-1.00); Blood Urea Nitrogen 20 mg/dL (7-18); Calcium 9.4 mg/dL (8.5-10.1); Carbon Dioxide 16 mmol/L (21-32); Chloride 96 mmol/L (98-108); Estimated Glomerular Filt Rate > 60; Glucose 379 mg/dL (70-99); Lipase 30 U/L (73-393); Magnesium 1.6 mg/dL (1.8-2.4); Osmolality Calculated 298 mOsm/kg (285-295); Partial Thromboplastin Time 26.2 SEC (23.90-30.70); Phosphorus 4.5 mg/dL (2.6-4.7); Potassium 5.1 mmol/L (3.5-5.1); Prothrombin Time 10.8 Seconds (9.50-12.10); Sodium 135 mmol/L (136-145); Total Protein 7.8 g/dL (6.4-8.2)
[2022-02-06 05:02] LABS: Lactic Acid Reflex 3.6 mmol/L (0.4-2.0)
[2022-02-06 05:18] LABS: Influenza A QL RT-PCR Negative (Negative); Influenza B QL RT-PCR Negative (Negative); SARS-CoV-2 RNA PCR Negative (Negative)
--- NOTE | 2022-02-06 05:46 | ECG_ITS ---
Measurements Intervals [place] Rate: 84 P: 84 DE: 181 QRS: 105 QRSD: 88 T: 82 QT: 369 QTc: 438 Interpretive Statements SINUS RHYTHM RIGHT ATRIAL ENLARGEMENT [0.3mV P-WAVE] NONSPECIFIC T-WAVE ABNORMALITY WITH MINOR ST SEGMENT CHANGES COMPARED TO ECG 02/06/2022 05:46:22 RAPID SVT HAS BEEN TERMINATED AND REPLACED BY SINUS RHYTHM Electronically Signed On 02-06-2022 8:51:40 CHIEF CONSTRUCTION INSPECTOR by Guero Patel M.D.
--- NOTE | 2022-02-06 05:52 | PC.NURSE ---
Pt arrived back from CT when he was hooked up to the Monitor his heart rate was in the 150s with very frequent PVC's. When this RN spoke with the pt he reported CP. MD and Cardiopulmonary were notified. before they arrived the heart rate progressed to the 170s. EKG read SVT. 6mg of adenosine was given at 0545. heart rate dropped to 90 and pt reported feeling better and full relief of chest pain. the repeat EKG showed Sinus rhythm with a heart rate in the 90s.
--- NOTE | 2022-02-06 05:53 | ECG_ITS ---
Measurements Intervals [place] Rate: 182 P: NE: 0 QRS: 241 QRSD: 93 T: -76 QT: 265 QTc: 462 Interpretive Statements SUPRAVENTRICULAR TACHYCARDIA RIGHT AXIS DEVIATION [QRS AXIS > 100] NONSPECIFIC ST SEGMENT CHANGE CRITICAL TEST RESULT COMPARED TO ECG 02/06/2022 04:22:24 RAPID SVT HAS REPLACED SINUS RIB Electronically Signed On 02-06-2022 8:51:04 ACID TESTER by Guero Patel M.D.
[2022-02-06 05:58] LABS: Troponin I 6.7 ng/L (0.00-60.4)
[2022-02-06 06:02] LABS: Glucose Point of Care 331 mg/dl (65-105)
[2022-02-06 06:02] LABS: D Dimer 0.54 mg/L (0.19-0.50)
[2022-02-06] MEDS: ADENOSINE IV SOLN 6 MG/2 ML VIAL IV PUSH (06:02)
--- NOTE | 2022-02-06 06:16 | ED.NAVMDI ---
HPI - Nausea/Vomiting/Diarrhea General Chief complaint: Nausea/Vomiting/Diarrhea <Guero Sanchez MD - Last Filed: 02/06/22 07:06> Stated complaint: nausea <Guero Sanchez MD - Last Filed: 02/06/22 07:06> Time Seen by Provider: 02/06/22 04:01 <Guero Sanchez MD - Last Filed: 02/06/22 07:06> Source: patient, family and EMS <Guero Sanchez MD - Last Filed: 02/06/22 07:06> Mode of arrival: EMS <Guero Sanchez MD - Last Filed: 02/06/22 07:06> Limitations: no limitations <Guero Sanchez MD - Last Filed: 02/06/22 07:06> History of Present Illness HPI Narrative: this is a 51-year-old gentleman with a history of type 1 diabetes on insulin, had hernia repair approximately 1 week ago, presents via EMS with some abdominal pain and numerous episodes of nausea and vomiting over the past 5 days. The patient denies having any chest pain or shortness of breath, no fever chills no diaphoresis no chest pain. Patient has had numerous episodes of nausea vomiting over the past 5 days and subsequently has not been eating and his blood sugars have been dropping and subsequently not taking his insulin. <Guero Sanchez MD - Last Filed: 02/06/22 07:06> MD elicited complaint: nausea, vomiting and abdominal pain <Guero Sanchez MD - Last Filed: 02/06/22 07:06> Pertinent past history: anorexia and cyclical vomiting <Guero Sanchez MD - Last Filed: 02/06/22 07:06> Onset (ago): day(s) <Guero Sanchez MD - Last Filed: 02/06/22 07:06> Description of vomiting: watery <Guero Sanchez MD - Last Filed: 02/06/22 07:06> Associated nausea: Yes <Guero Sanchez MD - Last Filed: 02/06/22 07:06> Associated abdominal pain: Yes <Guero Sanchez MD - Last Filed: 02/06/22 07:06> Location of pain: diffuse <Guero Sanchez MD - Last Filed: 02/06/22 07:06> Radiation: diffuse <Guero Sanchez MD - Last Filed: 02/06/22 07:06> Pain consistency: constant <Guero Sanchez MD - Last Filed: 02/06/22 07:06> Severity: moderate <Guero Sanchez MD - Last Filed: 02/06/22 07:06> Pain scale (0-10): 8 <Guero Sanchez MD - Last Filed: 02/06/22 07:06> Quality: aching <Guero Sanchez MD - Last Filed: 02/06/22 07:06> Exacerbating factors: eating <Guero Sanchez MD - Last Filed: 02/06/22 07:06> Relieving factors: vomiting <Guero Sancehz MD - Last Filed: 02/06/22 07:06> Related Data Home medications: Home Medications Medication Instructions Recorded Confirmed atorvastatin 20 mg tablet 20 mg PO DAILY 10/11/21 01/12/22 insulin admin supplies (InPen (for 10/11/21 01/12/22 Humalog) Blue subcutaneous) insulin glargine 100 unit/mL (3 35 unit subcut HS 12/22/21 01/12/22 mL) subcutaneous pen (Lantus Solostar U-100 Insulin) insulin lispro 100 unit/mL 5 - 10 sliding scale dose subcut 12/22/21 01/12/22 subcutaneous pen (Humalog KwikPen TID (U-100) Insulin) <Guero Sanchez MD - Last Filed: 02/06/22 07:06> Allergies/Adverse reactions: Allergies Allergy/AdvReac Type Severity Reaction Status Date / Time morphine AdvReac Other Verified 02/06/22 08:54 <Guero Sanchez MD - Last Filed: 02/06/22 07:06> Review of Systems Review of Systems: All systems reviewed & are unremarkable except as noted in HPI and below <Guero Sanchez MD - Last Filed: 02/06/22 07:06> PMFSH Past Medical History Medical History: Medical History Diabetes High cholesterol Hypertension <Guero Sanchez MD - Last Filed: 02/06/22 07:06> Surgical History Surgical History: Surgical History H/O left inguinal hernia repair 12/27/21 robotic assisted left inguinal hernia repair with mesh <Guero Sanchez MD - Last Filed: 02/06/22 07:06> Family Hi
[2022-02-06] MEDS: INSULIN REG 100 UNITS/100 ML 100 UNITS/100 ML BAG 6.4 UNITS IV CONT (06:31)
[2022-02-06 07:39] LABS: Glucose Point of Care 296 mg/dl (65-105)
[2022-02-06 07:40] LABS: Reflex Lactic Acid Yes or No Add Lactic
[2022-02-06] MEDS: LACTATED RINGERS 1,000 ML 125 ML IV CONT (07:48)
[2022-02-06] MEDS: MAG HYDROX/ALUMINUM HYD/SIMETH 30 ML, PHENobarb/HYOSCY/ATROPINE/SCOP 32.4 MG, LIDOCAINE... PO (07:49)
[2022-02-06 08:10] LABS: Anion Gap 19 mmol/L (8-16); Blood Urea Nitrogen 17 mg/dL (7-18); Calcium 8.2 mg/dL (8.5-10.1); Carbon Dioxide 16 mmol/L (21-32); Chloride 102 mmol/L (98-108); Estimated Glomerular Filt Rate > 60; Glucose 286 mg/dL (70-99); Osmolality Calculated 295 mOsm/kg (285-295); Potassium 4.4 mmol/L (3.5-5.1); Sodium 137 mmol/L (136-145)
[2022-02-06 08:34] LABS: Lactic Acid 2.1 mmol/L (0.4-2.0)
[2022-02-06 08:45] LABS: Glucose Point of Care 234 mg/dl (65-105)
[2022-02-06 08:59] LABS: Appearance Urine Clear (Clear); Bilirubin Urine Negative (Negative); Blood Urine Negative (Negative); Glucose Urine UA 2+ (Negative); Ketones Urine 3+ (Negative); Leukocyte Esterase Ur Negative LEU/UL (Negative); Nitrate Urine Negative (Negative); Protein Urine Negative (Negative); Specific Grav Ur >= 1.030 (1.010-1.020); Urobilinogen Urine 0.2 mg/dL (0.2-1.0)
[2022-02-06 09:05] LABS: Add Urine Microscopic? YES; Color Urine Light Yellow (Yellow); Squamous Epithelial Cell Urine Rare /hpf (Few)
[2022-02-06 09:06] LABS: Amorphous Sediment Urine Few; Mucus Urine Few /lpf
[2022-02-06 10:32] LABS: Glucose Point of Care 152 mg/dl (65-105)
--- NOTE | 2022-02-06 10:40 | PC.NURSE ---
Patient arrived on unit in w/c and able to self transfer from w/c to bed with stand by assist. Patient is not in possession of valuables at this time. Patient orientated to call light, bed and television controls and hospital environment. Voiced understanding.
[2022-02-06 11:36] LABS: Glucose Point of Care 144 mg/dl (65-105)
[2022-02-06] MEDS: ATORVASTATIN 10 MG TABLET 20 MG PO (12:16)
[2022-02-06] MEDS: ENOXAPARIN 40 MG/0.4 ML SYRINGE SUB-Q (12:17)
[2022-02-06 12:45] LABS: Anion Gap 12 mmol/L (8-16); Blood Urea Nitrogen 17 mg/dL (7-18); Calcium 8.5 mg/dL (8.5-10.1); Carbon Dioxide 21 mmol/L (21-32); Chloride 105 mmol/L (98-108); Estimated CRCL calculation 75 ml/min; Estimated Glomerular Filt Rate > 60; Glucose 149 mg/dL (70-99); Osmolality Calculated 290 mOsm/kg (285-295); Potassium 4.1 mmol/L (3.5-5.1); Sodium 138 mmol/L (136-145)
[2022-02-06 13:08] LABS: Glucose Point of Care 179 mg/dl (65-105)
[2022-02-06] MEDS: SODIUM CHLORIDE 0.9% IV 1,000 ML 100 ML IV CONT ×2 (13:21→23:12)
[2022-02-06 16:47] LABS: Glucose Point of Care 244 mg/dl (65-105)
--- NOTE | 2022-02-06 18:43 | PC.NURSE ---
message for the diabetic consult 2 [place]
[2022-02-06] MEDS: INSULIN GLARGINE (*BKC) 100 UNITS/ML 35 UNITS SUB-Q (20:36)
[2022-02-06 20:37] LABS: Glucose Point of Care 290 mg/dl (65-105)
[2022-02-07] VITALS: BP 117/73; PULSE 54; RESP 18; TEMP 36.3; O2SAT 98
[2022-02-07 04:00] VITALS: BP 116/76; PULSE 58; RESP 18; TEMP 36.6; O2SAT 98
[2022-02-07 06:03] LABS: Hematocrit 35.4 % (40.0-54.0); Hemoglobin 12.4 g/dL (14.0-18.0); Mean Corpuscular Hemoglobin 30.8 pg (27.0-31.0); Mean Corpuscular Volume 88.1 fL (78.0-102.0); Mean Platelet Volume 10.7 fl (8.7-11.0); Platelet Count Result 193 K/mm3 (150-420); Red Blood Count 4.02 M/mm3 (4.70-6.10); Red Cell Distribution Width 12.7 % (11.6-14.4); White Blood Count 7.5 K/mm3 (4.8-10.8)
[2022-02-07 06:12] LABS: Anion Gap 8 mmol/L (8-16); Blood Urea Nitrogen 12 mg/dL (7-18); Carbon Dioxide 26 mmol/L (21-32); Chloride 104 mmol/L (98-108); Estimated CRCL calculation 95 ml/min; Estimated Glomerular Filt Rate > 60; Glucose 133 mg/dL (70-99); Osmolality Calculated 287 mOsm/kg (285-295); Potassium 3.2 mmol/L (3.5-5.1); Sodium 138 mmol/L (136-145)
[2022-02-07 08:00] VITALS: BP 116/76; PULSE 60; RESP 14; TEMP 36.5; O2SAT 99
[2022-02-07 08:30] LABS: Glucose Point of Care 83 mg/dl (65-105)
[2022-02-07] MEDS: SODIUM CHLORIDE 0.9% IV 1,000 ML 100 ML IV CONT (09:30)
[2022-02-07] MEDS: ENOXAPARIN 40 MG/0.4 ML SYRINGE SUB-Q (09:32)
[2022-02-07] MEDS: ATORVASTATIN 10 MG TABLET 20 MG PO (09:33)
[2022-02-07 11:32] LABS: Glucose Point of Care 132 mg/dl (65-105)
[2022-02-07] MEDS: ONDANSETRON INJ 4 MG/2 ML VIAL IV PUSH (11:42)
--- NOTE | 2022-02-07 11:47 | PC.NURSE ---
Attempted to make outpatient appointment with Dr Lomeli for patient, they will not schedule this at this time, they state patient will have to make that appointment himself
--- NOTE | 2022-02-07 11:58 | PM.SD2 ---
Same Day Admit/Disch: HPI History of Present Illness Chief complaint: DKA NAUSEA VOMITING Narrative: Kvng Allen is a 51 year old male HPI Narrative: ? this is a 51-year-old gentleman with a history of type 1 diabetes on insulin, had hernia repair approximately 1 week ago,? presents via EMS with some abdominal pain and numerous episodes of nausea and vomiting over the past 5 days.? The patient denies having any chest pain or shortness of breath, no fever chills no diaphoresis no chest pain.? Patient has had numerous episodes of nausea vomiting over the past 5 days and subsequently has not been eating and his blood sugars have been dropping and subsequently not taking his insulin.?<Guero Sanchez MD - Last Filed: 02/06/22 07:06> [facility] Past Medical History Medical History Diabetes High cholesterol Hypertension Surgical History Surgical History H/O left inguinal hernia repair 12/27/21 robotic assisted left inguinal hernia repair with mesh Family History Family History Other Diabetes mellitus Heart disease Social History Social History Smoking packs per day: 1 Smoking cigarettes per day: 20.0 Years smoked: 20 Smoking pack-years: 20.00 Smoking status: Current every day smoker Tobacco type: cigarettes Second hand tobacco smoke exposure: Yes Alcohol intake: former Alcohol use details: Rarely Substance use: never Substance use type: does not use Lack of Transportation: No Lack of Food: Never True Current Housing: I Have Housing Concerned About Future Housing: No Difficulty Paying Gas/Electric Bills: No Difficulty Paying for Meds: No Currently Unemployed: No Education: Associate Degree Difficulty w/ Childcare or Family Care: No Spiritual care concerns: No Comments At time as signature, I have reviewed and agree with nursing past medical, social, surgical and family history. Please see nursing chart for further information. There is no relevant family history pertinent to the presenting complaint. Same Day Admit/Disch: Med Pre-admit Medications Home Medications Medication Instructions Recorded Confirmed Type atorvastatin 20 mg tablet 20 mg PO DAILY 10/11/21 02/06/22 History insulin admin supplies (InPen (for 10/11/21 02/06/22 History Humalog) Blue subcutaneous) insulin glargine 100 unit/mL (3 35 unit subcut HS 12/22/21 02/06/22 History mL) subcutaneous pen (Lantus Solostar U-100 Insulin) insulin lispro 100 unit/mL 5 - 10 sliding scale dose subcut 12/22/21 02/06/22 History subcutaneous pen (Humalog KwikPen TID (U-100) Insulin) fluticasone propionate 50 2 spray intranasal DAILY #16 grams 01/10/22 02/06/22 Rx mcg/actuation nasal spray,suspension (Flonase Allergy Relief) meclizine 25 mg tablet 25 mg PO TID #20 tabs 01/10/22 02/06/22 Rx ondansetron 4 mg disintegrating 4 mg PO Q6H PRN nausea and 01/10/22 02/06/22 Rx tablet vomiting #14 tabs ondansetron 4 mg disintegrating 4 mg PO Q8H PRN nausea and 02/07/22 Rx tablet vomiting #14 tabs Exam Narrative: GENERAL:Well-appearing, well-nourished, and in no acute distress. HEAD:Normocephalic, atraumatic. EYES: PERRLA and EOMI. ENT: Nares clear, no rhinorrhea or epistaxis. Mucous membranes moist. CHEST: Clear to auscultation. No respiratory distress. Ease of rise and fall of chest soto HEART: Regular rate and rhythm. Normal peripheral pulses. ABDOMEN: Soft, nontender, normal active bowel sounds. EXTREMITIES: Normal range of motion. SKIN: Warm, dry, no rash. NEURO: No focal deficits. Alert and oriented x3. DS: Data Data Completed and Pending Labs on day of discharge: Labs from last 24 hours 02/07/22 02/07/22 02/07/22 11:27 08:24 05:30 WBC R
[2022-02-07 12:00] VITALS: BP 120/78; PULSE 60; RESP 14; TEMP 36.6; O2SAT 99
--- NOTE | 2022-02-07 13:47 | PC.NURSE ---
Pt discharged to home. Discharge instructions regarding follow up appointments, medications, S&S of high and low blood sugar and what to do about each. Pt verbalizes understanding.
--- NOTE | 2022-02-10 11:21 | PC.NURSE ---
unable to contact for discharge call back.
== END 2022-02-07 13:30 | disposition home or self-care (01) ==
LOC: CHSED 09:50 → CHS2ND 10:05
PROVIDERS: Emergency Medicine; Nurse Practitioner Family; Admitting Provider Internal Medicine; Emergency Provider Emergency Medicine; PCP Internal Medicine; Visit Provider Internal Medicine
DX: E10.10 Type 1 diabetes mellitus with ketoacidosis without coma (principal); I47.1 Supraventricular tachycardia; I10 Essential (primary) hypertension; E78.00 Pure hypercholesterolemia, unspecified; F17.210 Nicotine dependence, cigarettes, uncomplicated; Z79.4 Long term (current) use of insulin; Z98.890 Other specified postprocedural states
CPT/HCPCS: 36415; 71275; 74177; 80048; 80053; 81001; 82948; 83605; 83690; 83735; 84100; 84484; 85025; 85027; 85380; 85610; 85730; 87502; 93005; 96361; 96372; 96374; 96375; 99285; A9270; C9113; G0378; G0379; J0153; J1650; J1815; J1885; J2405; J2765; J7030; J7120; Q9967; U0003; U0005

== ENCOUNTER 2022-06-29 20:36 | Emergency (ER) | payer OTHER, SELFPAY ==
[2022-06-29] VITALS (8 sets, daily range): BP systolic 118–149; BP diastolic 72–95; PULSE 40–57; RESP 16–21; TEMP 36.6; O2SAT 94–100
--- NOTE | ~2022-06-29 | CT_ITS ---
CT of the Abdomen and Pelvis: Indication: Abdominal pain Technique: 2.5 mm axial scans were obtained through the abdomen and pelvis following intravenous adm inistration of 100 cc of Omnipaque 350. Dose reduction technique was used on this scan by utilizing a utomated exposure control and iterative reconstruction technique. The dose-length product (DLP) was 2 27.29 mGy-cm. COMPARISON: 02/06/2022 Findings: Scans through the lung bases are unremarkable. The liver, spleen, pancreas, gallbladder, adrenals and kidneys are within normal limits. No evidence of aortic aneurysm. No lymphadenopathy. No bowel obstruction or bowel wall thickening. There is no definite evidence to suggest acute appendi citis. Images through the pelvis were performed. Urinary bladder unremarkable. No pelvic mass evident. No as cites. 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 These findings are stable from prior e xam. Impression: No acute abnormality. Stable peripheral vascular disease, as noted above. Reviewed, dictated and finalized at location . Impression: No acute abnormality. Stable peripheral vascular disease, as noted above.
--- NOTE | ~2022-06-29 | XR_ITS ---
EXAMINATION: XR chest 1V portable Exam Date/Time: 06/29/2022 21:05 CDT HISTORY: ACUTE SHORTNESS OF BREATH TODAY. LABORED RESPIRATIONS. Comparison: CTPA 02/06/2022. RESULT: Lines, tubes, and devices: None. Lungs and pleura: Clear. Calcified granulomas. Cardiomediastinal silhouette: Stable. Other: No acute osseous or upper abdominal finding. IMPRESSION: No acute cardiopulmonary process. Reviewed, dictated and finalized at location K.
--- NOTE | 2022-06-29 20:40 | ED.ABDPAIN ---
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 The pain is continuous without any exacerbating or relieving factors.No radiation of the pain. -- Multiple episodes of vomiting and diarrhea. His stool has been dark colored. -- Shortness of breath for the past 3 days. No chest pain. No fever. His tested positive for COVID 3 days ago. MD elicited complaint: abdominal pain Onset (ago): day(s) ( Started 3 days ago) Pain Consistency: constant Location: diffuse Severity: severe Pain scale (0-10): 9 Quality: aching Radiation: none Migration to: no migration Exacerbating factors: nothing Relieving factors: nothing Associated symptoms: nausea, vomiting and diarrhea Related Data Home Medications Medication Instructions Recorded Confirmed insulin admin supplies (InPen (for 10/11/21 06/29/22 Humalog) Blue subcutaneous) insulin glargine 100 unit/mL (3 35 unit subcut HS 12/22/21 06/29/22 mL) subcutaneous pen (Lantus Solostar U-100 Insulin) insulin lispro 100 unit/mL 5 - 10 sliding scale dose subcut 12/22/21 06/29/22 subcutaneous pen (Humalog KwikPen TID (U-100) Insulin) atorvastatin 20 mg tablet 20 mg PO DAILY 03/14/22 06/29/22 metoprolol succinate 25 mg 25 mg PO DAILY 06/29/22 06/29/22 tablet,extended release 24 hr Allergies Allergy/AdvReac Type Severity Reaction Status Date / Time morphine AdvReac Other Verified 06/29/22 21:02 Review of Systems Review of Systems: All systems reviewed & are unremarkable except as noted in HPI and below Constitutional: Constitutional: Reports as per HPI, Reports no additional constitutional complaints, Reports fatigue and Reports weakness Eyes: Eyes: Reports as per HPI and Reports no additional eye complaints ENT: Reports system reviewed and no additional complaints, except as documented and Reports as per HPI Cardiovascular: Cardiovascular: Reports as per HPI and Reports no additional cardiovascular complaints Respiratory: Respiratory: Reports as per HPI, Reports no additional respiratory complaints and Reports dyspnea Gastrointestinal: Gastrointestinal: Reports as per HPI, Reports no additional gastrointestinal complaints, Reports abdominal pain, Reports diarrhea, Reports nausea and Reports vomiting Genitourinary: Genitourinary: Reports no additional male genitourinary complaints Musculoskeletal: Musculoskeletal: Reports no additional musculoskeletal complaints and Reports as per HPI Comments: claudication bilateral lower extremities. Integumentary/Breasts: Skin/Breast: Reports system reviewed and no additional complaints, except as docu and Reports as per HPI Neurologic: Reports system reviewed and no additional complaints, except as documented and Reports as per HPI Psychiatric: Psychiatric: Reports no additional psychiatric complaints and Reports as per HPI Endocrine: Endocrine: Reports no additional endocrine complaints and Reports as per HPI Hematologic/Lymphatic: Hematologic/Lymphatic: Reports no additional hematologic/lymphatic complaints and Reports as per HPI Allergic/Immunologic: Allergic/Immunologic: Reports no additional allergic/immunologic complaints and Reports as per HPI [facility] Past Medical History Medical History
--- NOTE | 2022-06-29 20:47 | ECG_ITS ---
Measurements Intervals [place] Rate: 55 P: 48 [place]: 161 QRS: 116 QRSD: 98 T: 82 QT: 444 QTc: 427 Interpretive Statements SINUS BRADYCARDIA WITH SINUS ARRHYTHMIA DELAYED PRECORDIAL R/S TRANSITION BASELINE ARTIFACT- I, II, III, AVR, AVL, AVF, V1-V6 BORDERLINE ECG COMPARED TO ECG 02/06/2022 05:53:43 SINUS BRADYCARDIA NOW PRESENT SINUS ARRHYTHMIA NOW PRESENT Electronically Signed On 06-30-2022 6:36:31 CDT by Vinh Gaspar D.O.
[2022-06-29 21:03] LABS: Glucose Point of Care 224 mg/dl (65-105)
[2022-06-29 21:08] LABS: Hematocrit 45.9 % (40.0-54.0); Hemoglobin 16.2 g/dL (14.0-18.0); Mean Corpuscular HGB Conc 35.3 g/dL (32.0-36.0); Mean Corpuscular Hemoglobin 31.2 pg (27.0-31.0); Mean Corpuscular Volume 88.4 fL (78.0-102.0); Mean Platelet Volume 10.3 fl (8.7-11.0); Platelet Count Result 138 K/mm3 (150-420); Red Blood Count 5.19 M/mm3 (4.70-6.10); Red Cell Distribution Width 12.5 % (11.6-14.4); White Blood Count 3.8 K/mm3 (4.8-10.8)
[2022-06-29 21:16] LABS: Occult Blood Negative (Negative)
[2022-06-29 21:22] LABS: D Dimer 0.32 mg/L (0.19-0.50); Partial Thromboplastin Time 31.7 SEC (23.90-30.70); Prothrombin Time 10.8 Seconds (9.50-12.10)
[2022-06-29 21:26] LABS: Band Neutrophils Percent 0 % (0-6); Lymphocytes Percent Manual 58 % (18-44); Monocytes Absolute Manual 0.45 K/mm3 (0.1-0.90); Monocytes Percent Manual 12 % (3-9); Neutrophils Absolute Manual 1.14 K/mm3 (1.3-6.7); Neutrophils Percent Manual 30 % (46-73); Total Cells Counted 100
[2022-06-29 21:27] LABS: Basophils Percent Manual 0 % (0-1); Eosinophils Percent Manual 0 % (1-6); Platelet Estimate Adequate (Adequate)
[2022-06-29 21:31] LABS: Lactic Acid Reflex 1.8 mmol/L (0.4-2.0)
[2022-06-29 21:32] LABS: Alanine Aminotransferase 44 U/L (16-63); Albumin Level 3.8 g/dL (3.4-5.0); Alkaline Phosphatase 80 U/L (46-116); Anion Gap 13 mmol/L (8-16); Aspartate Amino Transferase 32 U/L (15-37); Bilirubin,Total 0.5 mg/dL (0.00-1.00); Blood Urea Nitrogen 20 mg/dL (7-18); Calcium 9.1 mg/dL (8.5-10.1); Carbon Dioxide 24 mmol/L (21-32); Chloride 97 mmol/L (98-108); Creatine Kinase 56 U/L (39-308); Estimated CRCL calculation 81 ml/min; Estimated Glomerular Filt Rate > 60; Glucose 227 mg/dL (70-99); NT Pro B Type Natriuretic Pept 25 pg/mL (0-125); Osmolality Calculated 287 mOsm/kg (285-295); Potassium 3.8 mmol/L (3.5-5.1); Sodium 134 mmol/L (136-145); Total Protein 7.3 g/dL (6.4-8.2)
[2022-06-29 21:33] LABS: Lipase 20 U/L (16-77); Troponin I 5.7 ng/L (0.00-60.4)
[2022-06-29 21:39] LABS: Appearance Urine Clear (Clear); Bilirubin Urine Negative (Negative); Blood Urine Negative (Negative); Color Urine Yellow (Yellow); Glucose Urine UA Negative (Negative); Ketones Urine 3+ (Negative); Leukocyte Esterase Ur Negative LEU/UL (Negative); Nitrate Urine Negative (Negative); Protein Urine 1+ (Negative); Specific Grav Ur >= 1.030 (1.010-1.020); Urobilinogen Urine 0.2 mg/dL (0.2-1.0)
[2022-06-29 21:44] LABS: Add Urine Microscopic? YES; Bacteria Urine Trace /hpf; Mucus Urine Moderate /lpf; RBC Urine 0-2 /hpf (0-2); Squamous Epithelial Cell Urine Rare /hpf (Few); WBC Urine 0-3 /hpf (0-3)
[2022-06-29 21:46] LABS: Influenza A QL RT-PCR Negative (Negative); Influenza B QL RT-PCR Negative (Negative); RSV RNA, RT-PCR Negative (Negative); SARS-CoV-2 RNA PCR Positive (Negative)
[2022-06-29] MEDS: fentaNYL CITRATE INJ (*CRX) 100 MCG/2 ML VIAL 50 MCG IV PUSH (22:40)
[2022-06-29] MEDS: ONDANSETRON INJ 4 MG/2 ML VIAL IV PUSH (22:42)
[2022-06-29] MEDS: LACTATED RINGERS 1,000 ML 999 ML IV CONT (22:42)
[2022-06-30] VITALS: BP 125/72; PULSE 48; RESP 18; O2SAT 98
[2022-06-30 01:00] VITALS: BP 132/83; PULSE 50; RESP 17; O2SAT 99
[2022-06-30 01:51] VITALS: BP 118/74; PULSE 54; RESP 18; TEMP 36.5; O2SAT 99
== END 2022-06-30 01:53 | disposition home or self-care (01) ==
PROVIDERS: Emergency Provider Internal Medicine Critical Care Medicine; PCP Internal Medicine
DX: U07.1 COVID-19 (principal); R10.84 Generalized abdominal pain; E11.9 Type 2 diabetes mellitus without complications; I10 Essential (primary) hypertension; E78.5 Hyperlipidemia, unspecified; Z79.4 Long term (current) use of insulin; Z87.891 Personal history of nicotine dependence
CPT/HCPCS: 36415; 71045; 74177; 80053; 81001; 82272; 82550; 82948; 83605; 83690; 83880; 84484; 85025; 85380; 85610; 85730; 87637; 93005; 96361; 96374; 96375; 99284; J2405; J3010; J7120; Q9967

== ENCOUNTER 2022-07-14 08:23 | Outpatient (CLI) | payer OTHER, SELFPAY ==
--- NOTE | ~2022-07-14 | CT_ITS ---
EXAMINATION: CTA abd aorta runoff DATE: 07/14/2022 09:29 INDICATION: Peripheral vascular disease. Abdominal pain. TECHNIQUE: Computed tomographic angiography (CTA) of the abdominal, pelvis, and both lower extremitie s was performed with 150 mL Omnipaque-350 intravenous contrast. Automated exposure control and iterat david reconstruction technique were employed. The dose-length product was 609.92 mGy-cm. Maximum intens ity projection 3D-reconstructions of the arteries were created by the technologist on a separate work station. COMPARISON: CT abdomen and pelvis 06/29/2022 FINDINGS: ABDOMINAL AORTA AND ITS BRANCHES: Abdominal aorta is normal in caliber. There is mild aortic atherosclerosis. There is no significant s tenosis of celiac axis, superior mesenteric artery, inferior mesenteric artery, or the renal arteries . PELVIC VASCULATURE: There is no significant stenosis of the common iliac arteries. There is total occlusion of right exte rnal iliac artery. There is no significant stenosis of the internal iliac arteries or left external i liac artery. RIGHT LOWER EXTREMITY VASCULATURE: There is reconstitution of flow in right profunda femoral artery and superficial femoral artery at th eir origins. There is no significant stenosis of right superficial femoral artery, popliteal artery, tibioperoneal trunk, peroneal artery, or anterior or posterior tibial arteries. LEFT LOWER EXTREMITY VASCULATURE: There is total occlusion of left common femoral artery with reconstitution of flow at the origins of the profunda femoral artery and superficial femoral artery. There is no significant stenosis of super ficial femoral artery, popliteal artery, tibioperoneal trunk, peroneal artery, or the anterior or pos terior tibial arteries. ADDITIONAL FINDINGS: The visualized portions of the lung bases demonstrate mild emphysema. No pleural effusion. There are small bilateral posterior diaphragmatic hernias. The heart size is normal. No pericardial effusion. T here are cysts in the liver measuring up to 13 mm. The gallbladder, spleen, pancreas, adrenal glands, and kidneys are normal. Stool distends the rectum. The appendix is normal. There are no pathological ly enlarged lymph nodes. There is no free intraperitoneal fluid. There is severe lower lumbar spondyl osis. IMPRESSION: 1. 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 Three-vessel runoff. 2. Total occlusion of left common femoral artery with reconstitution of flow at the origins of the le ft superficial femoral artery and deep femoral artery. Three-vessel runoff. Reviewed, dictated and finalized at location A. IMPRESSION: 1. 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 Three-vessel runoff. 2. Total occlusion of left common femoral artery with reconstitution of flow at the origins of the left superficial femoral artery and deep femoral artery. Th ree-vessel runoff.
[2022-07-14 08:57] LABS: Estimated Glomerular Filt Rate > 60
== END 2022-07-14 08:24 | disposition home or self-care (01) ==
LOC: CHSIMG 08:24
PROVIDERS: PCP Internal Medicine; Visit Provider Internal Medicine
DX: I73.9 Peripheral vascular disease, unspecified (principal); R10.9 Unspecified abdominal pain; I74.5 Embolism and thrombosis of iliac artery; I77.1 Stricture of artery
CPT/HCPCS: 75635; Q9967

== ENCOUNTER 2023-03-24 07:18 | Outpatient (CLI) | payer OTHER, SELFPAY ==
[2023-03-24 07:36] LABS: Appearance Urine Clear (Clear); Basophils Absolute Auto 0.08 K/mm3 (0.00-0.10); Basophils Percent Auto 0.8 % (0.0-1.0); Bilirubin Urine Negative (Negative); Blood Urine Negative (Negative); Color Urine Yellow (Yellow); Eosinophils Absolute Auto 0.21 K/mm3 (0.02-0.50); Eosinophils Percent Auto 2.2 % (1.0-6.0); Glucose Urine UA Negative (Negative); Hematocrit 41.9 % (40.0-54.0); Hemoglobin 13.9 g/dL (14.0-18.0); Immature Granulocyte Absolute 0.03 K/mm3 (0.00-0.00); Immature Granulocyte Percent A 0.3 % (0.0-0.0); Ketones Urine Trace (Negative); Leukocyte Esterase Ur Negative (Negative); Lymphocytes Absolute Auto 4.05 K/mm3 (1.10-4.50); Lymphocytes Percent Auto 42.6 % (18.0-42.0); Mean Corpuscular HGB Conc 33.2 g/dL (32.0-36.0); Mean Corpuscular Hemoglobin 30.2 pg (27.0-31.0); Mean Corpuscular Volume 91.1 fL (78.0-102.0); Mean Platelet Volume 10.4 fl (8.7-11.0); Monocytes Absolute Auto 0.59 K/mm3 (0.10-0.90); Monocytes Percent Auto 6.2 % (2.0-11.0); Neutrophils Absolute Auto 4.6 K/mm3 (1.7-7.2); Neutrophils Percent Auto 47.9 % (50.0-70.0); Nitrate Urine Negative (Negative); Platelet Count Result 200 K/mm3 (150-420); Protein Urine Negative (Negative); Red Cell Distribution Width 12.6 % (11.6-14.4); Specific Grav Ur >= 1.030 (1.010-1.020); Urobilinogen Urine 0.2 mg/dL (0.2-1.0); White Blood Count 9.5 K/mm3 (4.8-10.8)
[2023-03-24 07:40] LABS: Add Urine Microscopic? YES; Bacteria Urine Trace /hpf; Mucus Urine Moderate /lpf; RBC Urine None seen /hpf (0-2); Squamous Epithelial Cell Urine Occasional /hpf (Few); WBC Urine None seen /hpf (0-3)
[2023-03-24 08:28] LABS: Alanine Aminotransferase 41 U/L (16-63); Albumin Level 3.4 g/dL (3.4-5.0); Alkaline Phosphatase 83 U/L (46-116); Anion Gap 10 mmol/L (8-16); Aspartate Amino Transferase 21 U/L (15-37); Bilirubin,Total 0.5 mg/dL (0.00-1.00); Blood Urea Nitrogen 21 mg/dL (7-18); Calcium 8.6 mg/dL (8.5-10.1); Carbon Dioxide 26 mmol/L (21-32); Chloride 105 mmol/L (98-108); Cholesterol 165 mg/dL (0-200); Creatine Kinase 160 U/L (39-308); Estimated Glomerular Filt Rate > 60; Glucose 136 mg/dL (70-99); HDL Direct 61 mg/dL (40-60); LDL Cholesterol Calculated 95 mg/dL (<130); Osmolality Calculated 297 mOsm/kg (285-295); Potassium 4.3 mmol/L (3.5-5.1); Prostate Specific Antigen 0.8 ng/mL (< OR = 4.0); Sodium 141 mmol/L (136-145); Total Protein 6.5 g/dL (6.4-8.2); Triglycerides 45 mg/dL (0-150)
== END 2023-03-24 07:19 | disposition home or self-care (01) ==
LOC: CHSLAB 07:21
PROVIDERS: PCP Internal Medicine; Visit Provider Internal Medicine Cardiovascular Disease
DX: E78.00 Pure hypercholesterolemia, unspecified (principal); E10.65 Type 1 diabetes mellitus with hyperglycemia; I25.10 Atherosclerotic heart disease of native coronary artery without angina pectoris
CPT/HCPCS: 36415; 80053; 80061; 81001; 82550; 84153; 85025